=== PATIENT | female | born 1985 | race African-American/Black ===

== ENCOUNTER 2021-02-04 07:17 | Observation (INO) | payer MEDICAID, OTHER ==
[~2021-02-04] VITALS: Ht 160 cm; Wt 63.5 kg
[2021-02-04] MEDS ORDERED: TERBUTALINE SULFATE 1 MG/ML 1ML VIAL SC ONE (07:45)
[2021-02-04] MEDS ORDERED: LACTATED RINGER'S 1,000 ML IV ONE (07:45)
[2021-02-04] MEDS: TERBUTALINE SULFATE 1 MG/ML 1ML VIAL SC SCH ×2 (08:07→08:25)
[2021-02-04] MEDS ORDERED: NIFEdipine 10 MG CAP PO ONE (09:00)
[2021-02-04 09:07] LABS: Urine Bacteria NONE SEEN /hpf (None Seen); Urine Blood Negative /uL (Negative); Urine Specific Gravity 1.004 (1.001-1.035); Urine WBC 1 /hpf (0 - 5)
[2021-02-04 09:28] LABS: Alcohol, Urine < 3.0 mg/dL (0-10); Amphetamine Screen, Urine NEGATIVE (NEGATIVE); Barbiturate Scree,Urine NEGATIVE (NEGATIVE); Benzodiazephine Screen, Urine NEGATIVE (NEGATIVE); Cannabinoid Screen, Urine NEGATIVE (NEGATIVE); Cocaine Screen, Urine NEGATIVE (NEGATIVE); Opiate Scree,Urine NEGATIVE (NEGATIVE); Phencyclidine Screen, Urine NEGATIVE (NEGATIVE)
[2021-02-04] MEDS ORDERED: POTASSIUM CHL 20 Meq TABLET PO ONE (11:00)
== END 2021-02-04 11:35 | disposition home or self-care (01) ==
LOC: LDRP 07:17
PROVIDERS: ADMIT Obstetrics & Gynecology; ATTEND Obstetrics & Gynecology
DX: O60.02 Preterm labor without delivery, second trimester (principal); O26.892 Other specified pregnancy related conditions, second trimester; R10.9 Unspecified abdominal pain; O62.9 Abnormality of forces of labor, unspecified; Z3A.21 21 weeks gestation of pregnancy; Z79.899 Other long term (current) drug therapy
CPT/HCPCS: 59025; 76805; 76817; 80307; 81001; 81002; 94760; 96360; 96372; G0378; J3105; 96365; 96366